=== PATIENT | female | born 1945 | race African-American/Black ===

== ENCOUNTER 2018-09-13 22:02 | Inpatient (IN) | payer OTHER ==
--- NOTE | 2018-09-13 23:14 | PDOC ---
History of Present Illness - General Chief Complaint: Pain Stated Complaint: ASTHMA, HTN, BILATERAL LEG SWELLING - History of Present Illness Initial Comments: The patient is a 72F w/ a history of HTN, HLD, and OA who presents for evaluation of RASHID, dark stools, N w/ V x2 Tuesday, and dizziness with standing. Patient reports bright red blood in emesis. She reports that she has had dark stools since Tuesday as well. Additionally, the patient was recently taking prednisone for asthma exacerbation. Takes Tramadol daily for chronic pain, took one dose of Ibuprofen for her RASHID today She denies fevers/chills, chest pain, SOB, blurry vision, or changes in sensation 09/14/18 00:17 Past History - Past Medical History Allergies/Adverse Reactions: Allergies Allergy/AdvReac Type Severity Reaction Status Date / Time No Known Allergies Allergy Verified 09/13/18 22:11 Home Medications: Ambulatory Orders Albuterol 0.083% Nebulizer Soheila [Ventolin 0.083%] 1 neb NEB Q4H PRN 09/14/18 Albuterol Sulfate Inhaler - [Ventolin Hfa Inhaler -] 1 - 2 inh PO Q4H PRN Amlodipine Besylate 10 mg PO DAILY 09/14/18 Aspirin 81 mg PO DAILY 09/14/18 Atorvastatin Ca [Lipitor] 20 mg PO HS 09/14/18 Lisinopril [Prinivil] 20 mg PO DAILY 09/14/18 Tramadol HCl 50 mg PO TID PRN 09/14/18 CVA: No COPD: No HTN: Yes Hypercholesterolemia: Yes (arthritis,gerd) - Suicide/Smoking/Psychosocial Hx Smoking History: Never smoked Have you smoked in the past 12 months: No Information on smoking cessation initiated: No Drug/Substance Use Hx: No Substance Use Type: None Review of Systems - Review of Systems Able to Perform ROS?: Yes Comments:: GENERAL/CONSTITUTIONAL: No fever or chills HEAD, EYES, EARS, NOSE AND THROAT: No change in vision. No ear pain or discharge. No sore throat CARDIOVASCULAR: No chest pain or shortness of breath RESPIRATORY: No cough, wheezing, or hemoptysis GASTROINTESTINAL: per HPI GENITOURINARY: No dysuria, frequency, or change in urination MUSCULOSKELETAL: No joint or muscle swelling or pain. No neck or back pain SKIN: No rash NEUROLOGIC: + headache; No vertigo, loss of consciousness, or change in strength /sensation ENDOCRINE: No increased thirst. No abnormal weight change HEMATOLOGIC/LYMPHATIC: No anemia, easy bleeding, or history of blood clots ALLERGIC/IMMUNOLOGIC: No hives or skin allergy 09/14/18 02:33 Is the patient limited Georgian proficient: No *Physical Exam - Vital Signs Last Vital Signs Temp Pulse Resp BP Pulse Ox 98.1 F 92 H 16 127/84 100 09/13/18 22:05 09/13/18 22:05 09/13/18 22:05 09/13/18 22:05 09/13/18 22:05 - Physical Exam Comments: GENERAL: Awake, alert, and fully oriented, in no acute distress HEAD: No signs of trauma, normocephalic, atraumatic EYES: PERRL, EOMI, sclera anicteric, conjunctiva clear ENT: Hearing grossly normal, nares patent, oropharynx clear without exudates. Dry mucosa LUNGS: No distress, speaks full sentences, clear to auscultation bilaterally HEART:Regular rate and rhythm, normal S1 and S2, no murmurs appreciated, peripheral pulses normal and equal bilaterally ABDOMEN: Soft, mild epigastric TTP w/o rebound or guarding, normoactive bowel sounds RECTAL: Normal rectal tone. Soft stool in rectal vault. No internal or external hemorrhoids. No fissures. Stool melanic. EXTREMITIES : Normal inspection, Normal range of motion, no edema. No clubbing or cyanosis NEUROLOGICAL: Cranial nerves II through XII grossly intact. Normal speech, normal gait, no focal sensorimotor deficits SKIN: Warm, Dry, normal turgor, no rashes or lesions noted 09/14/18 02:31 ED Treatment Course - LABORATORY CBC & Chemistry Diagram: 09/13/18 23:45 09/14/18 00:54 Medical Decision Making - Medical Decision Making The patient is a 72F w/ a history of HTN who presents for evaluation of dark stool, RASHID, and orthostatic dizziness 09/14/18 00:28 ED Course CMP, CBC, T/S, FOBT FOBT + Hgb 7.1 Will transfuse 1u pRBC Consult to GI 09/14/18 00:34 WBC 10.9 Hypokalmeia to 3.1, will replete Trop I neg Lactate 1.4 Dispo: Admit for symptomatic anemia and GI bleed 09/14/18 02:06 *DC/Admit/Observation/Transfer Diagnosis at time of Disposition: Symptomatic anemia GI bleed Qualifiers: GI bleed type/associated pathology: unspecified gastrointestinal hemorrhage type Qualified Code(s): K92.2 - Gastrointestinal hemorrhage, unspecified - Discharge Dispostion Condition at time of disposition: Fair Decision to Admit order: Yes - Referrals - Patient Instructions - Post Discharge Activity
--- NOTE | 2018-09-13 23:26 | PDOC ---
Attending Attestation - Resident Resident Name: Roscoe Sloan - ED Attending Attestation I have performed the following: I have examined & evaluated the patient, The case was reviewed & discussed with the resident, I agree w/resident's findings & plan, Exceptions are as noted - Medical Decision Making 09/13/18 23:26 I, Dr. Randa Severino, DO, attest that this document has been prepared under my direction and personally reviewed by me in its entirety. I further attest, that it accurately reflects all work, treatment, procedures and medical decision -making performed by me. 09/14/18 00:22 a/p: 72yo female with rashid, dizziness, and epigastric pain -pt states she was eating blueberries on tuesday - states she vomited bright red later that day and then developed a RASHID -pt states she has been having black stool and felt dizzy -pt states she took tramadol for the rashid, which did not improve the rashid, but also took ibuprofen a few times -pt recently on steroids for an Asthma exacerbation -no cp/sob -pt feels lightheaded -concern for GI bleed secondary to steroid and ibuprofen use - poss symptomatic anemia causing the rashid and lightheadedness -will send labs, ekg, cxr, head ct, stool for heme -black stool on rectal exam -will give reglan, protonix -will monitor and reassess 09/14/18 00:53 hgb 7 will need blood transfusion Pt with ugib - will need admission and GI eval <Randa Severino - Last Filed: 09/14/18 00:53> - HPI HPI: 09/13/18 23:42 The patient is a 72 year old female, with a significant past medical history of OA, HLD, HTN, and 81 mg aspirin daily, who presents to the emergency department with one week of black stools and one episode of bright red emesis 2 days ago. SHe also reports an intermittent, right posterior headache since Tuesday for which she took Advil with little to no relief. She states she taking tramadol daily for chronic pains. She reports her most recent travel was from [place] about a month ago. The patient denies chest pain, shortness of breath, and dizziness. The patient denies fever, chills, nausea, vomit, diarrhea and constipation. The patient denies dysuria, frequency, urgency and hematuria. Allergies: NKDA - Physicial Exam PE: 09/13/18 23:43 Constitutional: Awake, alert, oriented. No acute distress. Head: Normocephalic. Atraumatic Eyes: PERRL. EOMI. Conjunctivae are not pale. ENT: Mucous membranes are moist and intact. Posterior pharynx without exudates or erythema. Uvula midline. Neck: Supple. Full ROM. No lymphadenopathy. Cardiovascular: Regular rate. Regular rhythm. S1, S2 regular. Distal pulses are 2+ and symmetric. Pulmonary/Chest: No evidence of respiratory distress. Clear to auscultation bilaterally No wheezing, rales or rhonchi. Abdominal: (+) epigastric TTP. Soft and non-distended. No rebound, guarding or rigidity. No organomegaly. No palpable masses. Good bowel sounds. Rectal: (+)Small amount of black stool in vault. No internal or external hemorrhoids. no palpable masses. Back: No CVA tenderness. Musculoskeletal: No edema. No cyanosis. No clubbing. Full range of motion in all extremities. Nocalf tenderness. Radial/pedal pulses are intact and 2+ bilaterally Skin: Skin is warm and dry. No petechiae. No purpura. Neurological: Alert and oriented to person, place, and time. Cranial nerves II- XII are grossly intact. Normal speech. Strength is grossly symmetric. No sensory deficits. Psychiatric: Good eye contact. Normal interaction, affect and behavior. - Medical Decision Making 09/13/18 23:43 Documentation prepared by Niya Bond, acting as paramedical aide for Randa Severino DO, <Niya Bond - Last Filed: 09/14/18 01:15> Heart Score/ECG Review - ECG Intrepretation Comment:: 09/14/18 00:52 sinus at 85, nl axis, nl interval, no acute st/t wave findings <Randa Severino - Last Filed: 09/14/18 00:53>
[2018-09-13] MEDS ORDERED: METOCLOPRAMIDE HCL 10 MG TABLET (FP) PO ONE (23:34)
[2018-09-13] MEDS ORDERED: diphenhydrAMINE HCL 25 MG CAPSULE (FP) PO ONE (23:35)
[2018-09-13] MEDS ORDERED: SODIUM CHLORIDE 0.9% 1000 ML INFUS.BAG IV ONE (23:40)
[2018-09-14] MEDS ORDERED: PANTOPRAZOLE SODIUM 40 MG VIAL IVPUSH ONE (00:08)
[2018-09-14] MEDS ORDERED: diphenhydrAMINE HCL 12.5 MG/5 ML BULK BOTTLE ONE (00:19)
[2018-09-14] MEDS ORDERED: METOCLOPRAMIDE HCL INJECTION 10 MG/2 ML VIAL ONE (00:19)
[2018-09-14] MEDS ORDERED: PANTOPRAZOLE SODIUM 40 MG/100 ML BAG IVPB ONE (00:20)
[2018-09-14 00:31] LABS: BASO % 0.4 % (0-2.0); EOS % 1.1 % (0-4.5); HEMATOCRIT 22.1 % (32.4-45.2); HEMOGLOBIN 7.1 GM/dL (10.7-15.3); LYMPH % 30.2 % (8-40); MCH 30.3 pg (25.7-33.7); MCHC 32.2 g/dl (32.0-36.0); MEAN PLT VOLUME 8.4 fl (7.5-11.1); MONO % 5.7 % (3.8-10.2); NEUT % 62.6 % (42.8-82.8); PLATELET COUNT 230 K/MM3 (134-434); RBC 2.35 M/mm3 (3.60-5.2); RDW 14.8 % (11.6-15.6); WHITE BLOOD COUNT 10.9 K/mm3 (4.0-10.0)
[2018-09-14 00:44] LABS: INR 0.97 (0.83-1.09); PROTHROMBIN TIME (PATIENT) 11.5 SEC (9.7-13.0)
[2018-09-14 00:47] LABS: ACTIVATED PTT 31.9 SECONDS (25.2-36.5)
[2018-09-14 01:36] LABS: ALBUMIN 2.9 g/dl (3.4-5.0); ALK PHOS 47 U/L (45-117); ANION GAP 7 MMOL/L (8-16); BILIRUBIN,TOTAL 0.1 mg/dL (0.2-1); BLOOD UREA NITROGEN 20 mg/dL (7-18); CALCIUM 7.7 mg/dL (8.5-10.1); CHLORIDE 112 mmol/L (98-107); CO2 26 mmol/L (21-32); CREATININE 0.7 mg/dL (0.55-1.3); GLUCOSE,RANDOM 104 mg/dL (74-106); POTASSIUM 3.1 mmol/L (3.5-5.1); SGOT/AST 11 U/L (15-37); SGPT/ALT 15 U/L (13-61); SODIUM 145 mmol/L (136-145); TOT PROT 5.6 g/dl (6.4-8.2)
--- NOTE | 2018-09-14 02:50 | PN ---
Teaching Attending Note Name of Resident: Rosa Michel ATTENDING PHYSICIAN STATEMENT I saw and evaluated the patient. I reviewed the resident's note and discussed the case with the resident. I agree with the resident's findings and plan as documented. SUBJECTIVE: OBJECTIVE: ASSESSMENT AND PLAN:
[2018-09-14] MEDS ORDERED: KCL 10 MEQ IVPB 10 MEQ/100 ML INFUS.BAG IVPB ONE ×2 (03:09→06:14)
[2018-09-14] MEDS ORDERED: LORazepam 2 MG/ML SDV VIAL IVPUSH ONE (03:19)
[2018-09-14] MEDS ORDERED: ALBUTEROL SO4 0.083% IH SOL 2.5 MG/3 ML VIAL.NEB. NEB PRN (03:20)
[2018-09-14] MEDS ORDERED: POTASSIUM CHLORIDE TABS 20 MEQ TABLET.ER (FP) PO ONE ×2 (03:20→06:14)
[2018-09-14] MEDS: KCL 10 MEQ IVPB 10 MEQ/100 ML INFUS.BAG IVPB SCH ×2 (03:25→06:25)
[2018-09-14 03:36] LABS: MAGNESIUM 1.9 mg/dL (1.8-2.4)
--- NOTE | 2018-09-14 03:41 | HP ---
CHIEF COMPLAINT: dizziness, headache PCP: HISTORY OF PRESENT ILLNESS: Patient is a 72 y/o female with a history of HTN, HLD, OA, asthma, and GERD who presents with dizziness and headache. Patient had an episode of vomiting with dark blood on four days ago and two episodes of melena of three days ago. She was recently having a headache so she was taking toradol as well as ibuprofen. She also was taking prednisone last week for an asthma exacerbation. She reports she would feel abdominal pain, would defecate and the pain would resolve. She reports she has never had any episodes like this in the past and has never been told she has a low blood count. She had a colonoscopy in 2011 and was told the results are normal. She states she is also lightheaded and the feeling is worse when she stands up. She reports also having a strange needle like sensation in her legs. Her PCP gave her a medication to help, but she did not like the side effects and does not remember the name. The patients headache is in the back of her head and she reports it is better from earlier. Denies history of migraines. Patient denies change in vision, abdominal pain, chest pain, shortness of breath, or swelling in the legs. ER course was notable for: (1)Reglan (2) 500 ml bolus (3) 20 meq KCL Recent Travel: PAST MEDICAL HISTORY: HTN, HLD, OA, asthma, and GERD PAST SURGICAL HISTORY: Social History: Smoking: denies Alcohol: denies Drugs: Family History: Allergies No Known Allergies Allergy (Verified 09/13/18 22:11) HOME MEDICATIONS: REVIEW OF SYSTEMS CONSTITUTIONAL: Absent: fever, chills, diaphoresis, generalized weakness, malaise, loss of appetite, weight change HEENT: Absent: rhinorrhea, nasal congestion, throat pain, throat swelling, difficulty swallowing, mouth swelling, ear pain, eye pain, visual changes CARDIOVASCULAR: Absent: chest pain, syncope, palpitations, irregular heart rate, lightheadedness , peripheral edema RESPIRATORY: Absent: cough, shortness of breath, dyspnea with exertion, orthopnea, wheezing, stridor, hemoptysis GASTROINTESTINAL: Absent: abdominal pain, abdominal distension, nausea, vomiting, diarrhea, constipation, melena, hematochezia GENITOURINARY: Absent: dysuria, frequency, urgency, hesitancy, hematuria, flank pain, genital pain MUSCULOSKELETAL: Absent: myalgia, arthralgia, joint swelling, back pain, neck pain SKIN: Absent: rash, itching, pallor HEMATOLOGIC/IMMUNOLOGIC: Absent: easy bleeding, easy bruising, lymphadenopathy, frequent infections ENDOCRINE: Absent: unexplained weight gain, unexplained weight loss, heat intolerance, cold intolerance NEUROLOGIC: headache, dizziness Absent: focal weakness or paresthesias, unsteady gait, seizure, mental status changes, bladder or bowel incontinence PSYCHIATRIC: Absent: anxiety, depression, suicidal or homicidal ideation, hallucinations. PHYSICAL EXAMINATION Vital Signs - 24 hr 09/13/18 22:05 Temperature 98.1 F Pulse Rate 92 H Respiratory 16 Rate Blood Pressure 127/84 O2 Sat by Pulse 100 Oximetry (%) GENERAL: Awake, alert, and fully oriented, in no acute distress. HEAD: Normal with no signs of trauma. EYES: Pupils equal, round and reactive to light, extraocular movements intact, EARS, NOSE, THROAT: Moist mucous membranes. NECK: Normal range of motion, supple without lymphadenopathy, JVD, or masses. LUNGS: expiratory breath sounds at upper lungs, No accessory muscle use. HEART: Regular rate and rhythm, normal S1 and S2 without murmur, rub or gallop. ABDOMEN: Soft, nontender, not distended, normoactive bowel sounds, no guarding, no rebound, no masses. Rectal: no internal or external hemrrhoids palpated, no anal fissures noted MUSCULOSKELETAL: Normal range of motion at all joints. LOWER EXTREMITIES: 2+ pulses, warm, well-perfused. No calf tenderness. No peripheral edema. NEUROLOGICAL: Cranial nerves II-XII intact. Normal speech. PSYCHIATRIC: Cooperative. Good eye contact. Appropriate mood and affect. SKIN: Warm, dry, normal turgor, no rashes or lesions noted, normal capillary refill. CBC, BMP 09/13/18 23:45 09/14/18 00:54 ASSESSMENT/PLAN: Patient is a 72 y/o female with a history of HTN, HLD, OA, asthma, and GERD who presents with dizziness and headache. #Dizziness 2/2 to anemia 2/2 to upper GI bleed - Hgb 7.1 - 1 unit of blood, f/u CBC @ 9 - Pantoprazole 40 mg IV BID - f/u GI consut Dr. Carmichael - NPO - NS @ 100 - hold home antihypertensives - orthostatics: 101/52 90, 108/60 106, 90/56 119 #hypokalemia - 20 units IV given in ED - 40 unit po given and f/u repeat K - Mg level wnl #asthma - albuterol q4h prn - clinically asymptomatic #anxiety - one time dose of .5 mg ativan # HLD - atorvastatin 20 mg #DVT ppx - SCD's - no anticoagulation, hold patients aspirin Visit type - Emergency Visit Emergency Visit: Yes ED Registration Date: 09/14/18 Care time: The patient presented to the Emergency Department on the above date and was hospitalized for further evaluation of their emergent condition. - New Patient This patient is new to me today: Yes Date on this admission: 09/14/18 - Critical Care Critical Care patient: No
--- NOTE | 2018-09-14 03:53 | PN ---
Teaching Attending Note Name of Resident: Rosa Michel ATTENDING PHYSICIAN STATEMENT I saw and evaluated the patient. I reviewed the resident's note and discussed the case with the resident. I agree with the resident's findings and plan as documented. SUBJECTIVE: Patient seen and examined; she is a 72 y/o AAF who presents to the ER with various complaints who was found to have a symptomatic anemia likely 2/2 GIB. She has been taking increased amount NSAIDs and was just on prednisone for an asthma exacerbation. She is hemodynamically stable and afebrile. Her complaints today were dizziness when going from sitting to standing, melena between tuesday to tuesday, and weakness. Further HPI per resident documentation. She denies any hemetemesis, hematochezia, or any LOC with these episodes. Hb found to be 7 range. Has had waxing and waning abdominal pain for months OBJECTIVE: VSS, labs reviewed NAD, resting comfortably in bed CN2-12 grossly intact with no FND NT ND +BS all 4 quads Orthostatic vs pending RRR s1/2 no otilio mgr Normal behavior, anxious affect ASSESSMENT AND PLAN: 1) Likely Upper GIB -Hb 7 with h/o melena; likely caused by the patient's medication usage -NPO, IVF, ER gave 1 unit PRBC. Trend H and H q6H, monitor on telemetry with low threshold for ICU transfer. -IV BID Protonix, GI consult. No concern for variceal bleed so can hold off on any octreotide for now. 2) Symptomatic Normocytic Anemia -May be all able to be explained by #1, but will check anemia studies as well. 3) Dizziness -Likely related to orthostasis 2/2 1; will hydrate and treat and check for resolution -Monitor for arrhythmias on tele -Look for other causes if not resolved with treatment of #1. 4) HTN -Hold antihypertensives
[2018-09-14] MEDS ORDERED: ATORVASTATIN CA 20 MG TABLET (FP) PO SCH (04:00)
[2018-09-14] MEDS: SODIUM CHLORIDE 1,000 ML IV SCH (07:39)
[2018-09-14 09:05] LABS: HEMATOCRIT 20.8 % (32.4-45.2); RBC 2.29 M/mm3 (3.60-5.2); WHITE BLOOD COUNT 9.9 K/mm3 (4.0-10.0)
[2018-09-14 09:06] LABS: PLATELET COUNT 172 K/MM3 (134-434); RDW 14.8 % (11.6-15.6)
[2018-09-14 09:09] LABS: HEMOGLOBIN 6.9 GM/dL (10.7-15.3)
[2018-09-14] MEDS ORDERED: PANTOPRAZOLE SODIUM 40 MG VIAL IVPUSH SCH (10:00)
[2018-09-14 10:14] LABS: BASO % 0.3 % (0-2.0); EOS % 0.6 % (0-4.5); HEMATOCRIT 21.5 % (32.4-45.2); HEMOGLOBIN 7.1 GM/dL (10.7-15.3); LYMPH % 17.2 % (8-40); MCH 29.9 pg (25.7-33.7); MCHC 33.1 g/dl (32.0-36.0); MEAN CELL VOLUME 90.4 fl (80-96); MEAN PLT VOLUME 7.8 fl (7.5-11.1); MONO % 4.9 % (3.8-10.2); PLATELET COUNT 182 K/MM3 (134-434); RBC 2.38 M/mm3 (3.60-5.2); RDW 15.3 % (11.6-15.6); WHITE BLOOD COUNT 9.9 K/mm3 (4.0-10.0)
[2018-09-14] MEDS ORDERED: PANTOPRAZOLE SODIUM 40 MG VIAL ONE (11:06)
--- NOTE | 2018-09-14 12:15 | EKG ---
Test Reason : Blood Pressure : / mmHG Vent. Rate : 085 BPM Atrial Rate : 085 BPM P-R Int : 166 ms QRS Dur : 082 ms QT Int : 372 ms P-R-T Axes : 053 001 019 degrees QTc Int : 442 ms NORMAL SINUS RHYTHM NORMAL ECG NO PREVIOUS ECGS AVAILABLE Confirmed by ALFREDO SOUSA MD ([id number]) on 09/14/2018 12:14:56 PM Referred By: Confirmed By:ALFREDO SOUSA MD
--- NOTE | 2018-09-14 15:57 | CON.GI ---
Consult Consult Specialty:: GI: Dr. Duffy for Dr. Carmichael Referred by:: Hospitalist Service Reason for Consultation:: Melena and anemia - History of Present Illness Chief Complaint: Leg swelling and headache History of Present Illness: 72F admitted who describes coming to the ER for evaluation of headache and leg swelling / pain. SHe was noted to be anemic. She explains that she was nauseaous and vomited dark red blood last . This was followed by melenic bowel movements tuesday. She has not had a bowel movement since tuesday. She has been taking tramadol and ibuprofen for her headache complaints and she took 1 ibuprofen yesterday secondary to leg pain. She was currently receiving her 2nd unit of PRBC. She described previous upper abdominal discomfort that has since resolved. She has never had an upper endoscopy. She has had 2 colonoscopies, the last being in 2011. She believes they were both normal. She has a sister who from colon cancer complications at age 47. 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 [employer] Place of : Other ([place]) History of Recent Travel: No Home Medications - Allergies Allergies/Adverse Reactions: Allergies Allergy/AdvReac Type Severity Reaction Status Date / Time No Known Allergies Allergy Verified 09/13/18 22:11 - Home Medications Home Medications: Ambulatory Orders Albuterol 0.083% Nebulizer Soheila [Ventolin 0.083%] 1 neb NEB Q4H PRN 09/14/18 Albuterol Sulfate Inhaler - [Ventolin Hfa Inhaler -] 1 - 2 inh PO Q4H PRN Amlodipine Besylate 10 mg PO DAILY 09/14/18 Aspirin 81 mg PO DAILY 09/14/18 Atorvastatin Ca [Lipitor] 20 mg PO HS 09/14/18 Lisinopril [Prinivil] 20 mg PO DAILY 09/14/18 Tramadol HCl 50 mg PO TID PRN 09/14/18 Family Disease History - Family Disease History Family Disease History: Other: Father (: 76: Dementia complications), Mother (Alive: BCA), Brother (5, healthy), Sister (2, 1 : colon cancer age 47), Son (2, 1 with CHF) Review of Systems - Review of Systems Constitutional: denies: Fever Cardiovascular: denies: Chest Pain Respiratory: denies: Cough, SOB Gastrointestinal: reports: Abdominal Pain (Resolved), Constipation, Melena ( Last BM:), Vomiting Blood Neurological: reports: Headache Physical Exam-GI Vital Signs: Vital Signs Temperature 09/14/18 15:30 Pulse Rate 89 09/14/18 15:30 Respiratory Rate 16 09/14/18 15:30 Blood Pressure 126/68 09/14/18 15:30 O2 Sat by Pulse Oximetry (%) 99 on RA 09/14/18 15:30 Constitutional: Yes: Calm Eyes: No: Sclera Icterus Cardiovascular: Yes: Regular Rate and Rhythm Respiratory: Yes: CTA Bilaterally Gastrointestinal Inspection: No: Distention, Scars ...Auscultate: Yes: Normoactive Bowel Sounds ...Palpate: No: Hepatomegaly, Splenomegaly, Tenderness ...Percussion: No: Tympanitic ...Rectal Exam: Yes: Other (Educational Assistant Teacher present: no external lesions, no masses, scant brown stool in rectal vault. no gross blood/melena) Edema: No (No LE edema) Neurological: Yes: Alert, Oriented Labs: CBC, BMP 09/14/18 09:58 09/14/18 00:54 INR, PTT INR 0.97 (0.83-1.09) 09/14/18 00:10 Problem List - Problems (1) GI bleed Assessment/Plan: Upper GI bleed by description, in setting of recet increase in NSAID use, without melena for several days Clinically stable Advise: NPO except meds with small sips water Changed protonix to infusion @ 8mg/hr Monitor for signs of active GI bleeding. If overt bleeding, change in hemodynamics, transfer to ICU setting Discussed EGD with Maryann for further intraluminal evaluation. Discussed potential risks of the procedure like but not limited to bleeding, perforation, infection, sedation medication effects, all of which could be potentially life threatening. She has agreed to the procedure. I also explained that if significant active bleeding was encountered, intubation to protect her airway could be required. Code(s): K92.2 - GASTROINTESTINAL HEMORRHAGE, UNSPECIFIED Qualifiers: GI bleed type/associated pathology: unspecified gastrointestinal hemorrhage type (2) Family history of malignant neoplasm of colon in first degree relative diagnosed when younger than 60 years of age Assessment/Plan: Ms. Wolf is due for colon cancer screening given her family history. She is aware and will be discussing scheduling GI follow-up in [place], where she resides, with her PMD. Code(s): Z80.0 - FAMILY HISTORY OF MALIGNANT NEOPLASM OF DIGESTIVE ORGANS
[2018-09-14] MEDS: PANTOPRAZOLE SODIUM 80 MG in SODIUM CHLORIDE 100 ML IVPB SCH (18:23)
--- NOTE | 2018-09-14 19:03 | PN ---
Teaching Attending Note Name of Resident: Ana Lopez ATTENDING PHYSICIAN STATEMENT I saw and evaluated the patient. I reviewed the resident's note and discussed the case with the resident. I agree with the resident's findings and plan as documented. SUBJECTIVE: Patient is comfortable with no acute distress. no shortness breath. OBJECTIVE: Vital Signs Temperature 98.5 F 09/14/18 06:56 Pulse Rate 68 09/14/18 06:56 Respiratory Rate 19 09/14/18 06:56 Blood Pressure 110/78 09/14/18 06:56 O2 Sat by Pulse Oximetry (%) 99 09/14/18 06:56 GENERAL: Awake, alert, and fully oriented, in no acute distress. HEAD: Normal with no signs of trauma. EYES: Pupils equal, round and reactive to light, extraocular movements intact, EARS, NOSE, THROAT: Moist mucous membranes. NECK: Normal range of motion, supple without lymphadenopathy, JVD, or masses. LUNGS: expiratory breath sounds at upper lungs, No accessory muscle use. HEART: Regular rate and rhythm, normal S1 and S2 without murmur, rub or gallop. ABDOMEN: Soft, nontender, not distended, normoactive bowel sounds, no guarding, no rebound, no masses. EXTREMITIES: 2+ pulses, warm, well-perfused. No calf tenderness. No peripheral edema. NEUROLOGICAL: Cranial nerves II-XII intact. Normal speech. PSYCHIATRIC: Cooperative. Good eye contact. Appropriate mood and affect. SKIN: Warm, dry, normal turgor, no rashes or lesions noted, normal capillary refill. CBCD WBC 9.9 K/mm3 (4.0-10.0) 09/14/18 09:58 RBC 2.38 M/mm3 (3.60-5.2) L 09/14/18 09:58 Hgb 7.1 GM/dL (10.7-15.3) L 09/14/18 09:58 Hct 21.5 % (32.4-45.2) L 09/14/18 09:58 MCV 90.4 fl (80-96) 09/14/18 09:58 MCHC 33.1 g/dl (32.0-36.0) 09/14/18 09:58 RDW 15.3 % (11.6-15.6) 09/14/18 09:58 Plt Count 182 K/MM3 (134-434) 09/14/18 09:58 MPV 7.8 fl (7.5-11.1) 09/14/18 09:58 CMP Sodium 145 mmol/L (136-145) 09/14/18 00:54 Potassium 3.1 mmol/L (3.5-5.1) L 09/14/18 00:54 Chloride 112 mmol/L (98-107) H 09/14/18 00:54 Carbon Dioxide 26 mmol/L (21-32) 09/14/18 00:54 Anion Gap 7 MMOL/L (8-16) L 09/14/18 00:54 BUN 20 mg/dL (7-18) H 09/14/18 00:54 Creatinine 0.7 mg/dL (0.55-1.3) 09/14/18 00:54 Creat Clearance w eGFR > 60 (>60) 09/14/18 00:54 Random Glucose 104 mg/dL (74-106) 09/14/18 00:54 Calcium 7.7 mg/dL (8.5-10.1) L 09/14/18 00:54 Total Bilirubin 0.1 mg/dL (0.2-1) L 09/14/18 00:54 AST 11 U/L (15-37) L 09/14/18 00:54 ALT 15 U/L (13-61) 09/14/18 00:54 Alkaline Phosphatase 47 U/L (45-117) 09/14/18 00:54 Total Protein 5.6 g/dl (6.4-8.2) L 09/14/18 00:54 Albumin 2.9 g/dl (3.4-5.0) L 09/14/18 00:54 CARDIAC ENZYMES Creatine Kinase 61 IU/L (26-192) 09/14/18 00:54 Troponin I < 0.02 ng/ml (0.00-0.05) 09/14/18 00:54 Current Medications Generic Name Dose Route Start Last Admin Trade Name Freq PRN Reason Stop Dose Admin Albuterol Sulfate 1 amp 09/14/18 03:20 Ventolin 0.083% Nebulizer Soln - NEB Q4H PRN SHORT OF BREATH/WHEEZING Sodium Chloride 1,000 mls @ 100 mls/hr 09/14/18 03:15 09/14/18 07:39 Normal Saline - IV 100 mls/hr ASDIR [facility] Administration Pantoprazole Sodium 80 mg/ 100 mls @ 10 mls/hr 09/14/18 16:00 09/14/18 18:23 Sodium Chloride IVPB 10 mls/hr Q10H [facility] Administration 8 MG/HR Home Medications Medication Instructions Recorded Albuterol 0.083% Nebulizer Soheila 1 neb NEB Q4H PRN 09/14/18 [Ventolin 0.083%] Albuterol Sulfate Inhaler - 1 - 2 inh PO Q4H PRN 09/14/18 [Ventolin Hfa Inhaler -] Amlodipine Besylate 10 mg PO DAILY 09/14/18 Aspirin 81 mg PO DAILY 09/14/18 Atorvastatin Ca [Lipitor] 20 mg PO HS 09/14/18 Lisinopril [Prinivil] 20 mg PO DAILY 09/14/18 Tramadol HCl 50 mg PO TID PRN 09/14/18 ASSESSMENT AND PLAN: Patient is a 72 y/o female with a history of HTN, HLD, OA, asthma, and GERD who presents with dizziness and headache, and was found to have in ED. an episode of episode of vomiting with dark blood on four days ago and two episodes of melena of three days ago. # Acute UGIB , s/p one unit of PRBC , on IV BID Protonix, GI consult appreciated. # Symptomatic Normocytic Anemia s/p one unit of RBC # Dizziness due to anemia # HTN stable , will Hold antihypertensives. DVT Px: SCDs
--- NOTE | 2018-09-14 20:37 | PN ---
Physical Exam: SUBJECTIVE: Patient seen and examined this morning in the ED. Patient says she has felt nausea, dizziness since her episodes of Hematemesis and Melena. Continues to feel nausea and posterior head ache during my interview. Has been using tramadol for the past 2 months. Additionally mentions her younger sister from Colon cancer. Patient has had 2 colonoscopy's in the past, the last one was 2011 and both were normal as per patient. OBJECTIVE: Vital Signs Period Temp Pulse Resp BP Sys/Cuevas Pulse Ox Last 24 Hr 98.1 F-98.5 F 68-92 16-19 96-127/63-84 99-100 GENERAL: A&Ox3, NAD HEAD: NCAT EYES: PERRL, EOMI ENT: Oropharynx clear without exudates, moist mucous membranes. NECK: No JVD LUNGS: Breath sounds equal, clear to auscultation bilaterally, no wheezes HEART: Regular rate and rhythm, S1, S2 without murmur ABDOMEN: Soft, nontender, nondistended, + bowel sounds, no guarding EXTREMITIES: 2+ pulses, no edema. NEUROLOGICAL: Cranial nerves II through XII grossly intact. Normal speech. SKIN: Warm, dry, no rashes or lesions noted Laboratory Results - last 24 hr 09/13/18 09/13/18 09/13/18 23:45 23:45 23:45 WBC 10.9 H RBC 2.35 L Hgb 7.1 L Hct 22.1 L MCV 94.0 MCH 30.3 MCHC 32.2 RDW 14.8 Plt Count 230 MPV 8.4 Absolute Neuts (auto) 6.9 Neutrophils % 62.6 Lymphocytes % 30.2 Monocytes % 5.7 Eosinophils % 1.1 Basophils % 0.4 Nucleated RBC % 0 PT with INR INR PTT (Actin FS) Sodium Cancelled Potassium Cancelled Chloride Cancelled Carbon Dioxide Cancelled Anion Gap Cancelled BUN Cancelled Creatinine Cancelled Creat Clearance w eGFR Cancelled Random Glucose Cancelled Lactic Acid Calcium Cancelled Magnesium Ferritin Total Bilirubin Cancelled AST Cancelled ALT Cancelled Alkaline Phosphatase Cancelled Creatine Kinase Cancelled Troponin I Cancelled Total Protein Cancelled Albumin Cancelled Vitamin B12 Serum Folate TSH Cancelled Stool Occult Blood Blood Type O POSITIVE Antibody Screen Negative Crossmatch See Detail 09/14/18 09/14/18 09/14/18 00:10 00:10 00:10 WBC RBC Hgb Hct MCV MCH MCHC RDW Plt Count MPV Absolute Neuts (auto) Neutrophils % Lymphocytes % Monocytes % Eosinophils % Basophils % Nucleated RBC % PT with INR 11.50 INR 0.97 PTT (Actin FS) 31.9 Sodium Potassium Chloride Carbon Dioxide Anion Gap BUN Creatinine Creat Clearance w eGFR Random Glucose Lactic Acid 1.4 Calcium Magnesium Ferritin Total Bilirubin AST ALT Alkaline Phosphatase Creatine Kinase Troponin I Total Protein Albumin Vitamin B12 Serum Folate TSH Stool Occult Blood Positive Blood Type Antibody Screen Crossmatch 09/14/18 09/14/18 09/14/18 00:50 00:50 00:54 WBC RBC Hgb Hct MCV MCH MCHC RDW Plt Count MPV Absolute Neuts (auto) Neutrophils % Lymphocytes % Monocytes % Eosinophils % Basophils % Nucleated RBC % PT with INR INR PTT (Actin FS) Sodium 145 Potassium 3.1 L Chloride 112 H Carbon Dioxide 26 Anion Gap 7 L BUN 20 H Creatinine 0.7 Creat Clearance w eGFR > 60 Random Glucose 104 Lactic Acid Calcium 7.7 L Magnesium 1.9 2.0 Ferritin 35.3 Total Bilirubin 0.1 L AST 11 L ALT 15 Alkaline Phosphatase 47 Creatine Kinase 61 Troponin I < 0.02 Total Protein 5.6 L Albumin 2.9 L Vitamin B12 532 Serum Folate 15 TSH 1.61 Stool Occult Blood Blood Type O POSITIVE Antibody Screen Crossmatch 09/14/18 09/14/18 08:10 09:58 WBC 9.9 9.9 RBC 2.29 L 2.38 L Hgb 6.9 L* 7.1 L Hct 20.8 L 21.5 L MCV 91.0 90.4 MCH 30.0 29.9 MCHC 33.0 33.1 RDW 14.8 15.3 Plt Count 172 D 182 MPV 8.0 7.8 Absolute Neuts (auto) 7.6 Neutrophils % 77.0 D Lymphocytes % 17.2 D Monocytes % 4.9 Eosinophils % 0.6 Basophils % 0.3 Nucleated RBC % 0 PT with INR INR PTT (Actin FS) Sodium Potassium Chloride Carbon Dioxide Anion Gap BUN Creatinine Creat Clearance w eGFR Random Glucose Lactic Acid Calcium Magnesium Ferritin Total Bilirubin AST ALT Alkaline Phosphatase Creatine Kinase Troponin I Total Protein Albumin Vitamin B12 Serum Folate TSH Stool Occult Blood Blood Type Antibody Screen Crossmatch Active Medications Albuterol Sulfate (Ventolin 0.083% Nebulizer Soln -) 1 amp NEB Q4H PRN PRN Reason: SHORT OF BREATH/WHEEZING Sodium Chloride (Normal Saline -) 1,000 mls @ 100 mls/hr IV ASDIR [facility] Last Admin: 09/14/18 07:39 Dose: 100 mls/hr Pantoprazole Sodium 80 mg/ (Sodium Chloride) 100 mls @ 10 mls/hr IVPB Q10H [facility] Last Admin: 09/14/18 18:23 Dose: 10 mls/hr IMAGING: -CXR: Shallow inspiration. No evidence of active pulmonary disease. -EKG: NORMAL SINUS RHYTHM, NORMAL ECG, VR 85, QTc 442 ASSESSMENT/PLAN: 72 y/o female with PMHx of HTN, HLD, OA, asthma, and GERD presented with dizziness and headache. #Dizziness -Likely due to Anemia 2/2 to upper GI bleed from excessive NSAID use; Still consider Orthostasis -Positive orthostatics: 101/52 90, 108/60 106, 90/56 119 -Hgb 7.1 on admission -S/P 2 Units pRBC's (09/14) -GI (Dr. Banuelos) Consulted, Appreciate Rec's, If overt bleeding, change in hemodynamics, transfer to ICU setting. EGD pending. -Home dose tramadol held -NPO -Started Protonix infusion @ 8mg/hr -Monitor for signs of active GIB, Hemodynamic decline -IV NS @ 100 mls/hr -Home antihypertensives held -Monitor on Tele, Continue to monitor H&H -Iron studies pending #Hypokalemia -20 mEq IV in ED, 40 mEq po on admission -Mg level wnl -Continue to monitor #Asthma -Continue Ventolin -Continue to monitor # HLD -Continue home dose atorvastatin #PPx -DVT: SCD's Visit type - Emergency Visit Emergency Visit: Yes ED Registration Date: 09/14/18 Care time: The patient presented to the Emergency Department on the above date and was hospitalized for further evaluation of their emergent condition. - New Patient This patient is new to me today: Yes Date on this admission: 09/14/18 - Critical Care Critical Care patient: No - Discharge Referral Referred to [facility] No
[2018-09-14 20:42] LABS: HEMATOCRIT 27.8 % (32.4-45.2); HEMOGLOBIN 9.3 GM/dL (10.7-15.3); MCH 30.4 pg (25.7-33.7); MCHC 33.4 g/dl (32.0-36.0); MEAN CELL VOLUME 90.9 fl (80-96); MEAN PLT VOLUME 8.1 fl (7.5-11.1); PLATELET COUNT 209 K/MM3 (134-434); RBC 3.06 M/mm3 (3.60-5.2); RDW 15.3 % (11.6-15.6); WHITE BLOOD COUNT 10.3 K/mm3 (4.0-10.0)
[2018-09-14] MEDS ORDERED: ATORVASTATIN CA 10 MG TABLET (FP) ONE (23:40)
[2018-09-14] MEDS: ATORVASTATIN CA 20 MG TABLET (FP) PO SCH (23:44)
[2018-09-15] MEDS ORDERED: PANTOPRAZOLE SODIUM 40 MG/100 ML BAG IVPB ONE (02:50)
[2018-09-15] MEDS: PANTOPRAZOLE SODIUM 80 MG in SODIUM CHLORIDE 100 ML IVPB SCH ×4 (04:14→21:25)
[2018-09-15] MEDS: SODIUM CHLORIDE 1,000 ML IV SCH ×3 (04:15→21:26)
[2018-09-15 06:48] LABS: BASO % 0.4 % (0-2.0); HEMATOCRIT 27.3 % (32.4-45.2); HEMOGLOBIN 9.1 GM/dL (10.7-15.3); LYMPH % 21.8 % (8-40); MCH 30.4 pg (25.7-33.7); MCHC 33.4 g/dl (32.0-36.0); MEAN PLT VOLUME 7.6 fl (7.5-11.1); MONO % 5.4 % (3.8-10.2); NEUT % 70.4 % (42.8-82.8); PLATELET COUNT 186 K/MM3 (134-434); WHITE BLOOD COUNT 8.4 K/mm3 (4.0-10.0)
[2018-09-15 07:43] LABS: ANION GAP 10 MMOL/L (8-16); BLOOD UREA NITROGEN 7 mg/dL (7-18); CALCIUM 8.2 mg/dL (8.5-10.1); CHLORIDE 110 mmol/L (98-107); CO2 25 mmol/L (21-32); CREATININE 0.6 mg/dL (0.55-1.3); GLUCOSE,RANDOM 89 mg/dL (74-106); MAGNESIUM 2.2 mg/dL (1.8-2.4); PHOSPHOROUS 3.5 mg/dL (2.5-4.9); POTASSIUM 3.4 mmol/L (3.5-5.1); SODIUM 144 mmol/L (136-145)
[2018-09-15 08:06] LABS: SERUM IRON SATURATION 28 % (15-55); TOTAL IRON BINDING CAPACITY 225 ug/dL (250-450); UIBC 163 ug/dL (118-369)
--- NOTE | 2018-09-15 13:44 | PN ---
Teaching Attending Note Name of Resident: Ana Lopez ATTENDING PHYSICIAN STATEMENT I saw and evaluated the patient. I reviewed the resident's note and discussed the case with the resident. I agree with the resident's findings and plan as documented. SUBJECTIVE: Patient is comfortable, no further bleed. OBJECTIVE: Vital Signs Temperature 98.4 F 09/15/18 13:19 Pulse Rate 83 09/15/18 13:19 Respiratory Rate 16 09/15/18 13:19 Blood Pressure 107/77 09/15/18 13:19 O2 Sat by Pulse Oximetry (%) 99 09/15/18 13:19 GENERAL: Awake, alert, and fully oriented, in no acute distress. HEAD: Normal with no signs of trauma. EYES: Pupils equal, round and reactive to light, extraocular movements intact, EARS, NOSE, THROAT: Moist mucous membranes. NECK: Normal range of motion, supple without lymphadenopathy, JVD, or masses. LUNGS: expiratory breath sounds at upper lungs, No accessory muscle use. HEART: Regular rate and rhythm, normal S1 and S2 without murmur, rub or gallop. ABDOMEN: Soft, nontender, not distended, normoactive bowel sounds, no guarding, no rebound, no masses. EXTREMITIES: 2+ pulses, warm, well-perfused. No calf tenderness. No peripheral edema. NEUROLOGICAL: Cranial nerves II-XII intact. Normal speech. PSYCHIATRIC: Cooperative. Good eye contact. Appropriate mood and affect. SKIN: Warm, dry, normal turgor, no rashes or lesions noted, normal capillary refill. CBCD WBC 8.4 K/mm3 (4.0-10.0) 09/15/18 06:00 RBC 3.00 M/mm3 (3.60-5.2) L 09/15/18 06:00 Hgb 9.1 GM/dL (10.7-15.3) L 09/15/18 06:00 Hct 27.3 % (32.4-45.2) L 09/15/18 06:00 MCV 91.0 fl (80-96) 09/15/18 06:00 MCHC 33.4 g/dl (32.0-36.0) 09/15/18 06:00 RDW 15.0 % (11.6-15.6) 09/15/18 06:00 Plt Count 186 K/MM3 (134-434) 09/15/18 06:00 MPV 7.6 fl (7.5-11.1) 09/15/18 06:00 CMP Sodium 144 mmol/L (136-145) 09/15/18 06:00 Potassium 3.4 mmol/L (3.5-5.1) L 09/15/18 06:00 Chloride 110 mmol/L (98-107) H 09/15/18 06:00 Carbon Dioxide 25 mmol/L (21-32) 09/15/18 06:00 Anion Gap 10 MMOL/L (8-16) 09/15/18 06:00 BUN 7 mg/dL (7-18) 09/15/18 06:00 Creatinine 0.6 mg/dL (0.55-1.3) 09/15/18 06:00 Creat Clearance w eGFR > 60 (>60) 09/15/18 06:00 Random Glucose 89 mg/dL (74-106) 09/15/18 06:00 Calcium 8.2 mg/dL (8.5-10.1) L 09/15/18 06:00 Total Bilirubin 0.1 mg/dL (0.2-1) L 09/14/18 00:54 AST 11 U/L (15-37) L 09/14/18 00:54 ALT 15 U/L (13-61) 09/14/18 00:54 Alkaline Phosphatase 47 U/L (45-117) 09/14/18 00:54 Total Protein 5.6 g/dl (6.4-8.2) L 09/14/18 00:54 Albumin 2.9 g/dl (3.4-5.0) L 09/14/18 00:54 CARDIAC ENZYMES Creatine Kinase 61 IU/L (26-192) 09/14/18 00:54 Troponin I < 0.02 ng/ml (0.00-0.05) 09/14/18 00:54 Current Medications Generic Name Dose Route Start Last Admin Trade Name Freq PRN Reason Stop Dose Admin Albuterol Sulfate 1 amp 09/14/18 03:20 Ventolin 0.083% Nebulizer Soln - NEB Q4H PRN SHORT OF BREATH/WHEEZING Atorvastatin Calcium 20 mg 09/14/18 22:00 09/14/18 23:44 Lipitor - PO 20 mg HS [facility] Administration Sodium Chloride 1,000 mls @ 100 mls/hr 09/14/18 03:15 09/15/18 04:15 Normal Saline - IV 100 mls/hr ASDIR [facility] Administration Pantoprazole Sodium 80 mg/ 100 mls @ 10 mls/hr 09/14/18 16:00 09/15/18 04:14 Sodium Chloride IVPB 10 mls/hr Q10H [facility] Administration 8 MG/HR Home Medications Medication Instructions Recorded Albuterol 0.083% Nebulizer Soheila 1 neb NEB Q4H PRN 09/14/18 [Ventolin 0.083%] Albuterol Sulfate Inhaler - 1 - 2 inh PO Q4H PRN 09/14/18 [Ventolin Hfa Inhaler -] Amlodipine Besylate 10 mg PO DAILY 09/14/18 Atorvastatin Ca [Lipitor] 20 mg PO HS 09/14/18 Lisinopril [Prinivil] 20 mg PO DAILY 09/14/18 Tramadol HCl 50 mg PO TID PRN 09/14/18 ASSESSMENT AND PLAN: Patient is a 72 y/o female with a history of HTN, HLD, OA, asthma, and GERD who presents with dizziness and headache, and was found to have in ED. an episode of episode of vomiting with dark blood on four days ago and two episodes of melena of three days ago. # Acute UGIB , s/p one unit of PRBC , on IV BID Protonix, GI consult appreciated. # Symptomatic Normocytic Anemia s/p one unit of RBC # Dizziness due to anemia # HTN stable , will Hold antihypertensives. DVT Px: SCDs
[2018-09-15 14:35] VITALS: BMI 27.4
--- NOTE | 2018-09-15 15:32 | PN ---
Progress Note (short form) - Note Progress Note: EGD complete. Report placed in procedural section and to be scanned into [facility]. If no signs of overt bleeding, advance to fulls in AM and PO PPI . Other recommendations per EGD report Problem List - Problems (1) GI bleed Code(s): K92.2 - GASTROINTESTINAL HEMORRHAGE, UNSPECIFIED Qualifiers: GI bleed type/associated pathology: unspecified gastrointestinal hemorrhage type Qualified Code(s): K92.2 - Gastrointestinal hemorrhage, unspecified (2) Family history of malignant neoplasm of colon in first degree relative diagnosed when younger than 60 years of age Code(s): Z80.0 - FAMILY HISTORY OF MALIGNANT NEOPLASM OF DIGESTIVE ORGANS
--- NOTE | 2018-09-15 16:07 | PN ---
Physical Exam: SUBJECTIVE: Patient seen and examined this morning at bedside. No new complaints. Denies fevers, chills chest pain, SOB, nausea, vomiting, diarrhea, constipation. OBJECTIVE: Vital Signs Period Temp Pulse Resp BP Sys/Cuevas Pulse Ox Last 24 Hr 97.8 F-98.8 F 79-106 16-22 105-122/71-81 98-100 GENERAL: A&Ox3, NAD HEAD: NCAT EYES: PERRL, EOMI ENT: Oropharynx clear without exudates, moist mucous membranes. NECK: No JVD LUNGS: Breath sounds equal, clear to auscultation bilaterally, no wheezes HEART: Regular rate and rhythm, S1, S2 without murmur ABDOMEN: Soft, nontender, nondistended, + bowel sounds, no guarding EXTREMITIES: 2+ pulses, no edema. NEUROLOGICAL: Cranial nerves II through XII grossly intact. Normal speech. SKIN: Warm, dry, no rashes or lesions noted Laboratory Results - last 24 hr 09/14/18 09/14/18 09/15/18 08:10 19:30 06:00 WBC 10.3 H RBC 3.06 L Hgb 9.3 L Hct 27.8 L D MCV 90.9 MCH 30.4 MCHC 33.4 RDW 15.3 Plt Count 209 MPV 8.1 Absolute Neuts (auto) Neutrophils % Lymphocytes % Monocytes % Eosinophils % Basophils % Nucleated RBC % Sodium Potassium Chloride Carbon Dioxide Anion Gap BUN Creatinine Creat Clearance w eGFR Random Glucose Calcium Phosphorus Magnesium Iron 62 Cancelled TIBC 225 L Iron Saturation 28 09/15/18 09/15/18 06:00 06:00 WBC 8.4 RBC 3.00 L Hgb 9.1 L Hct 27.3 L MCV 91.0 MCH 30.4 MCHC 33.4 RDW 15.0 Plt Count 186 MPV 7.6 Absolute Neuts (auto) 5.9 Neutrophils % 70.4 Lymphocytes % 21.8 D Monocytes % 5.4 Eosinophils % 2.0 D Basophils % 0.4 Nucleated RBC % 0 Sodium 144 Potassium 3.4 L Chloride 110 H Carbon Dioxide 25 Anion Gap 10 BUN 7 Creatinine 0.6 Creat Clearance w eGFR > 60 Random Glucose 89 Calcium 8.2 L Phosphorus 3.5 Magnesium 2.2 Iron TIBC Iron Saturation Active Medications Albuterol Sulfate (Ventolin 0.083% Nebulizer Soln -) 1 amp NEB Q4H PRN PRN Reason: SHORT OF BREATH/WHEEZING Atorvastatin Calcium (Lipitor -) 20 mg PO HS [facility] Last Admin: 09/14/18 23:44 Dose: 20 mg Sodium Chloride (Normal Saline -) 1,000 mls @ 100 mls/hr IV ASDIR [facility] Last Admin: 09/15/18 04:15 Dose: 100 mls/hr Pantoprazole Sodium 80 mg/ (Sodium Chloride) 100 mls @ 10 mls/hr IVPB Q10H [facility] Last Admin: 09/15/18 13:51 Dose: 10 mls/hr IMAGING: -CXR: Shallow inspiration. No evidence of active pulmonary disease. -EKG: NORMAL SINUS RHYTHM, NORMAL ECG, VR 85, QTc 442 ASSESSMENT/PLAN: 72 y/o female with PMHx of HTN, HLD, OA, asthma, and GERD presented with dizziness and headache. #Dizziness -Likely due to Anemia 2/2 to upper GI bleed from excessive NSAID use; Still consider Orthostasis -GI (Dr. Banuelos) Consulted, Appreciate Rec's, If overt bleeding, change in hemodynamics, transfer to ICU setting. -EGD done today (09/15), Small sliding hiatal hernia, Non bleeding 7mm ulcer with clean base with flat red spot in the duodenal bulb likely the cause of recent bleeding. -If Pathology report shows positive H. Pylori, will treat -Will continue Pantoprazole drip. If no signs of overt bleeding, will change to PO Protonix 40mg daily. -Hgb 7.1 on admission -S/P 2 Units pRBC's (09/14) -Home dose tramadol held, Avoid NSAIDs -Monitor for signs of active GIB, Hemodynamic decline -Clear liquid diet. If no signs of overt bleeding, advance to fulls. -IV NS @ 100 mls/hr -Home antihypertensives held -Iron studies noted -Positive orthostatics: 101/52 90, 108/60 106, 90/56 119 #Hypokalemia -20 mEq IV in ED, 40 mEq po on admission -Mg level wnl -Continue to monitor #Asthma -Continue Ventolin -Continue to monitor #HLD -Continue home dose atorvastatin #FEN -NS @ 100 mls/hr -Lytes WNL -Clear liquid diet. If no signs of overt bleeding, advance to fulls. #PPx -DVT: SCD's Visit type - Emergency Visit Emergency Visit: Yes ED Registration Date: 09/14/18 Care time: The patient presented to the Emergency Department on the above date and was hospitalized for further evaluation of their emergent condition. - New Patient This patient is new to me today: No - Critical Care Critical Care patient: No - Discharge Referral Referred to [facility] No
[2018-09-15] MEDS: ATORVASTATIN CA 20 MG TABLET (FP) PO SCH (21:25)
[2018-09-16] MEDS ORDERED: PT OWN MED DRAWER 7, Y5N ONE ×2 (03:21→07:00)
[2018-09-16] MEDS: PANTOPRAZOLE SODIUM 80 MG in SODIUM CHLORIDE 100 ML IVPB SCH (03:23)
[2018-09-16 08:30] LABS: BASO % 0.3 % (0-2.0); EOS % 1.3 % (0-4.5); HEMATOCRIT 29.6 % (32.4-45.2); HEMOGLOBIN 9.8 GM/dL (10.7-15.3); LYMPH % 20.2 % (8-40); MCH 30.6 pg (25.7-33.7); MCHC 33.3 g/dl (32.0-36.0); MEAN CELL VOLUME 91.8 fl (80-96); MEAN PLT VOLUME 7.8 fl (7.5-11.1); MONO % 4.8 % (3.8-10.2); NEUT % 73.4 % (42.8-82.8); PLATELET COUNT 241 K/MM3 (134-434); RBC 3.22 M/mm3 (3.60-5.2); RDW 16.2 % (11.6-15.6); WHITE BLOOD COUNT 9.2 K/mm3 (4.0-10.0)
--- NOTE | 2018-09-16 08:34 | PN ---
Progress Note (short form) - Note Progress Note: Vital Signs Temperature 98.0 F 09/16/18 06:14 Pulse Rate 74 09/16/18 06:14 Respiratory Rate 18 09/16/18 06:14 Blood Pressure 123/77 09/16/18 06:14 O2 Sat by Pulse Oximetry (%) 97 09/15/18 20:13 GENERAL: Awake, alert, and fully oriented, in no acute distress. HEAD: Normal with no signs of trauma. EYES: Pupils equal, round and reactive to light, extraocular movements intact, EARS, NOSE, THROAT: Moist mucous membranes. NECK: Normal range of motion, supple without lymphadenopathy, JVD, or masses. LUNGS: expiratory breath sounds at upper lungs, No accessory muscle use. HEART: Regular rate and rhythm, normal S1 and S2 without murmur, rub or gallop. ABDOMEN: Soft, nontender, not distended, normoactive bowel sounds, no guarding, no rebound, no masses. EXTREMITIES: 2+ pulses, warm, well-perfused. No calf tenderness. No peripheral edema. NEUROLOGICAL: Cranial nerves II-XII intact. Normal speech. PSYCHIATRIC: Cooperative. Good eye contact. Appropriate mood and affect. SKIN: Warm, dry, normal turgor, no rashes or lesions noted, normal capillary refill. CBCD WBC 8.4 K/mm3 (4.0-10.0) 09/15/18 06:00 RBC 3.00 M/mm3 (3.60-5.2) L 09/15/18 06:00 Hgb 9.1 GM/dL (10.7-15.3) L 09/15/18 06:00 Hct 27.3 % (32.4-45.2) L 09/15/18 06:00 MCV 91.0 fl (80-96) 09/15/18 06:00 MCHC 33.4 g/dl (32.0-36.0) 09/15/18 06:00 RDW 15.0 % (11.6-15.6) 09/15/18 06:00 Plt Count 186 K/MM3 (134-434) 09/15/18 06:00 MPV 7.6 fl (7.5-11.1) 09/15/18 06:00 CMP Sodium 144 mmol/L (136-145) 10/26/18 06:00 Potassium 3.4 mmol/L (3.5-5.1) L 09/15/18 06:00 Chloride 110 mmol/L (98-107) H 09/15/18 06:00 Carbon Dioxide 25 mmol/L (21-32) 09/15/18 06:00 Anion Gap 10 MMOL/L (8-16) 09/15/18 06:00 BUN 7 mg/dL (7-18) 09/15/18 06:00 Creatinine 0.6 mg/dL (0.55-1.3) 09/15/18 06:00 Creat Clearance w eGFR > 60 (>60) 09/15/18 06:00 Random Glucose 89 mg/dL (74-106) 09/15/18 06:00 Calcium 8.2 mg/dL (8.5-10.1) L 09/15/18 06:00 Total Bilirubin 0.1 mg/dL (0.2-1) L 09/14/18 00:54 AST 11 U/L (15-37) L 09/14/18 00:54 ALT 15 U/L (13-61) 09/14/18 00:54 Alkaline Phosphatase 47 U/L (45-117) 09/14/18 00:54 Total Protein 5.6 g/dl (6.4-8.2) L 09/14/18 00:54 Albumin 2.9 g/dl (3.4-5.0) L 09/14/18 00:54 CARDIAC ENZYMES Creatine Kinase 61 IU/L (26-192) 09/14/18 00:54 Troponin I < 0.02 ng/ml (0.00-0.05) 09/14/18 00:54 Current Medications Generic Name Dose Route Start Last Admin Trade Name Freq PRN Reason Stop Dose Admin Albuterol Sulfate 1 amp 09/14/18 03:20 Ventolin 0.083% Nebulizer Soln - NEB Q4H PRN SHORT OF BREATH/WHEEZING Atorvastatin Calcium 20 mg 09/14/18 22:00 09/15/18 21:25 Lipitor - PO 20 mg HS [facility] Administration Sodium Chloride 1,000 mls @ 100 mls/hr 09/14/18 03:15 09/15/18 21:26 Normal Saline - IV 100 mls/hr ASDIR [facility] Administration Pantoprazole Sodium 80 mg/ 100 mls @ 10 mls/hr 09/14/18 16:00 09/16/18 03:23 Sodium Chloride IVPB 10 mls/hr Q10H [facility] Administration 8 MG/HR Home Medications Medication Instructions Recorded Albuterol 0.083% Nebulizer Soheila 1 neb NEB Q4H PRN 09/14/18 [Ventolin 0.083%] Albuterol Sulfate Inhaler - 1 - 2 inh PO Q4H PRN 09/14/18 [Ventolin Hfa Inhaler -] Amlodipine Besylate 10 mg PO DAILY 09/14/18 Atorvastatin Ca [Lipitor] 20 mg PO HS 09/14/18 Lisinopril [Prinivil] 20 mg PO DAILY 09/14/18 Tramadol HCl 50 mg PO TID PRN 09/14/18 Aspirin [ASA -] 81 mg PO DAILY 09/15/18 ASSESSMENT AND PLAN: Patient is a 72 y/o female with a history of HTN, HLD, OA, asthma, and GERD who presents with dizziness and headache, and was found to have in ED. an episode of episode of vomiting with dark blood on four days ago and two episodes of melena of three days ago. # Acute UGIB , s/p one unit of PRBC , on IV BID Protonix, GI consult appreciated. # Symptomatic Normocytic Anemia s/p one unit of RBC # Dizziness due to anemia # HTN stable , will Hold antihypertensives. DVT Px: SCDs
[2018-09-16 09:08] LABS: ALBUMIN 3.4 g/dl (3.4-5.0); ALK PHOS 55 U/L (45-117); ANION GAP 9 MMOL/L (8-16); BLOOD UREA NITROGEN 6 mg/dL (7-18); CALCIUM 8.3 mg/dL (8.5-10.1); CHLORIDE 112 mmol/L (98-107); CO2 26 mmol/L (21-32); CREATININE 0.7 mg/dL (0.55-1.3); GLUCOSE,RANDOM 95 mg/dL (74-106); MAGNESIUM 2.2 mg/dL (1.8-2.4); PHOSPHOROUS 3.4 mg/dL (2.5-4.9); POTASSIUM 3.3 mmol/L (3.5-5.1); SGOT/AST 10 U/L (15-37); SGPT/ALT 15 U/L (13-61); SODIUM 146 mmol/L (136-145); TOT PROT 6.5 g/dl (6.4-8.2)
--- NOTE | 2018-09-16 09:58 | PN ---
Progress Note (short form) - Note Progress Note: Denies abdominal pain. No further BM, no vomiting. Pt vomited blood 6 days ago, had clean-based small ulcer yesterday. She is at minimal risk of rebleeding. Will advance diet, change to oral PPI. CBC, BMP 09/16/18 07:50 09/16/18 07:50 If diet is tolerated and no further bleeding, have no objection to discharge tomorrow.
[2018-09-16] MEDS ORDERED: PANTOPRAZOLE SOD 40 MG SUSPENSION PACKET PO SCH (10:00)
--- NOTE | 2018-09-16 17:10 | DS ---
Physical Exam: SUBJECTIVE: Patient seen and examined Patient is feeling better with no acute distress, no shortness of breath, no further bleed, tolerated diet well so far. OBJECTIVE: PHYSICAL EXAM Vital Signs Temperature 98.3 F 09/16/18 14:06 Pulse Rate 85 recheck 09/16/18 15:06 Respiratory Rate 18 09/16/18 14:06 Blood Pressure 114/66 09/16/18 14:06 O2 Sat by Pulse Oximetry (%) 98 09/16/18 09:00 GENERAL: The patient is awake, alert, and fully oriented, in no acute distress. HEAD: Normal with no signs of trauma. EYES: PERRL, extraocular movements intact, sclera anicteric, conjunctiva clear. ENT: Ears normal, nares patent, oropharynx clear without exudates, moist mucous membranes. NECK: Trachea midline, full range of motion, supple. LUNGS: Breath sounds equal, clear to auscultation bilaterally, no wheezes, no crackles, no accessory muscle use. HEART: Regular rate and rhythm, S1, S2 without murmur, rub or gallop. ABDOMEN: Soft, nontender, nondistended, normoactive bowel sounds, no guarding, no rebound, no hepatosplenomegaly, no masses. EXTREMITIES: 2+ pulses, warm, well-perfused, no edema. NEUROLOGICAL: Cranial nerves II through XII grossly intact. Normal speech, gait not observed. PSYCH: Normal mood, normal affect. SKIN: Warm, dry, normal turgor, no rashes or lesions noted. LABS CBCD WBC 9.2 K/mm3 (4.0-10.0) 09/16/18 07:50 RBC 3.22 M/mm3 (3.60-5.2) L 09/16/18 07:50 Hgb 9.8 GM/dL (10.7-15.3) L 09/16/18 07:50 Hct 29.6 % (32.4-45.2) L 09/16/18 07:50 MCV 91.8 fl (80-96) 09/16/18 07:50 MCHC 33.3 g/dl (32.0-36.0) 09/16/18 07:50 RDW 16.2 % (11.6-15.6) H 09/16/18 07:50 Plt Count 241 K/MM3 (134-434) D 09/16/18 07:50 MPV 7.8 fl (7.5-11.1) 09/16/18 07:50 CMP Sodium 146 mmol/L (136-145) H 09/16/18 07:50 Potassium 3.3 mmol/L (3.5-5.1) L 09/16/18 07:50 Chloride 112 mmol/L (98-107) H 09/16/18 07:50 Carbon Dioxide 26 mmol/L (21-32) 09/16/18 07:50 Anion Gap 9 MMOL/L (8-16) 09/16/18 07:50 BUN 6 mg/dL (7-18) L 09/16/18 07:50 Creatinine 0.7 mg/dL (0.55-1.3) 09/16/18 07:50 Creat Clearance w eGFR > 60 (>60) 09/16/18 07:50 Random Glucose 95 mg/dL (74-106) 09/16/18 07:50 Calcium 8.3 mg/dL (8.5-10.1) L 09/16/18 07:50 Total Bilirubin 1.0 mg/dL (0.2-1) 09/16/18 07:50 AST 10 U/L (15-37) L 09/16/18 07:50 ALT 15 U/L (13-61) 09/16/18 07:50 Alkaline Phosphatase 55 U/L (45-117) 09/16/18 07:50 Total Protein 6.5 g/dl (6.4-8.2) 09/16/18 07:50 Albumin 3.4 g/dl (3.4-5.0) 09/16/18 07:50 CARDIAC ENZYMES Creatine Kinase 61 IU/L (26-192) 09/14/18 00:54 Troponin I < 0.02 ng/ml (0.00-0.05) 09/14/18 00:54 Current Medications Generic Name Dose Route Start Last Admin Trade Name Freq PRN Reason Stop Dose Admin Albuterol Sulfate 1 amp 09/14/18 03:20 Ventolin 0.083% Nebulizer Soln - NEB Q4H PRN SHORT OF BREATH/WHEEZING Atorvastatin Calcium 20 mg 09/14/18 22:00 09/15/18 21:25 Lipitor - PO 20 mg HS CASSY Administration Pantoprazole Sodium 40 mg 09/16/18 10:00 Protonix Packets For Oral Suspension - PO BID [facility] Home Medications Medication Instructions Recorded Albuterol 0.083% Nebulizer Soheila 1 neb NEB Q4H PRN 09/14/18 [Ventolin 0.083%] Albuterol Sulfate Inhaler - 1 - 2 inh PO Q4H PRN 09/14/18 [Ventolin Hfa Inhaler -] Amlodipine Besylate 10 mg PO DAILY 09/14/18 Atorvastatin Ca [Lipitor] 20 mg PO HS 09/14/18 Lisinopril [Prinivil] 20 mg PO DAILY 09/14/18 Tramadol HCl 50 mg PO TID PRN 09/14/18 Aspirin [ASA -] 81 mg PO DAILY 09/15/18 HOSPITAL COURSE: Date of Admission:09/14/18 Date of Discharge: 09/16/18 Patient is a 72 y/o female with a history of HTN, HLD, OA, asthma, and GERD who presents with dizziness and headache, and was found to have in ED. an episode of episode of vomiting with dark blood on four days ago and two episodes of melena of three days ago. # Acute UGIB , s/p one unit of PRBC s/p EGD with Bx by , follow with for Bx result. for further treatment if needed. will continue with po Protonix for 30 day s now. As per GI : clean-based small ulcer yesterday. She is at minimal risk of rebleeding.diet is advanced , change to oral PPI. # Symptomatic Normocytic Anemia s/p one unit of RBC improved # Dizziness due to anemia improved post transfusion # HTN stable , will Hold antihypertensives. DVT Px: SCDs Minutes to complete discharge: 46 Discharge Summary Reason For Visit: GASTROINTESTINAL HEMORRHAGE,SECONDARY ANEMIA, Current Active Problems Family history of malignant neoplasm of colon in first degree relative diagnosed when younger than 60 years of age (Acute) GI bleed (Acute) Symptomatic anemia (Acute) Condition: Fair - Instructions - Home Medications Comprehensive Discharge Medication List: Ambulatory Orders Albuterol 0.083% Nebulizer Soheila [Ventolin 0.083%] 1 neb NEB Q4H PRN 09/14/18 Albuterol Sulfate Inhaler - [Ventolin Hfa Inhaler -] 1 - 2 inh PO Q4H PRN Amlodipine Besylate 10 mg PO DAILY 09/14/18 Atorvastatin Ca [Lipitor] 20 mg PO HS 09/14/18 Lisinopril [Prinivil] 20 mg PO DAILY 09/14/18 Tramadol HCl 50 mg PO TID PRN 09/14/18 Aspirin [ASA -] 81 mg PO DAILY 09/15/18 This patient is new to me today: No Emergency Visit: Yes ED Registration Date: 09/14/18 Care time: The patient presented to the Emergency Department on the above date and was hospitalized for further evaluation of their emergent condition. Critical Care patient: No - Discharge Referral Referred to [facility] Med P.C.: No
[2018-09-16 17:57] VITALS: BP 123/75; PULSE 86; TEMP 98.4
--- NOTE | 2018-09-19 18:25 | PATH ---
Surgical Pathology Report Patient Name: GIUSEPPE DIALLO [facility]. Rec. #: [id number] /Age/Gender: 1945 (Age: 72) / F Account: [id number] Location: [facility] MED/SURG Taken: 09/15/2018 Received: 09/18/2018 Reported: 09/19/2018 Physicians: Marsha Jimenez M.D. Specimen(s) Received BX ANTRUM AND BODY Clinical History GI bleeding Postoperative diagnosis: Hiatal hernia, duodenal bulb ulcer Final Diagnosis ANTRUM AND BODY, BIOPSY: GASTRIC MUCOSA WITH MODERATELY ACTIVE CHRONIC GASTRITIS. NEGATIVE FOR INTESTINAL METAPLASIA. IMMUNOSTAIN FOR H. PYLORI IS POSITIVE. Electronically Signed Eve Cox M.D. Gross Description Received in formalin, labeled "biopsy antrum and body" are 5 [place], irregular portions of soft tissue ranging from 0.2-0.4 cm. in greatest dimension. The specimens are submitted in toto in one cassette. /09/18/2018 saudi/09/18/2018
== END 2018-09-16 19:00 | disposition home or self-care (01) | DRG 378 ==
LOC: JER 22:02 → JERBED 09-14 00:34 → J7W 09-15 13:52
PROVIDERS: ADMIT Internal Medicine; ATTEND Internal Medicine
PROC: 30233N1 Transfusion of Nonautologous Red Blood Cells into Peripheral Vein, Percutaneous Approach (ICD-10-PCS; 2018-09-14)
PROC: 0DB68ZX Excision of Stomach, Via Natural or Artificial Opening Endoscopic, Diagnostic (ICD-10-PCS; principal; 2018-09-15 13:00)
DX: K26.4 Chronic or unspecified duodenal ulcer with hemorrhage (principal); D62 Acute posthemorrhagic anemia; D64.9 Anemia, unspecified; E87.6 Hypokalemia; K44.9 Diaphragmatic hernia without obstruction or gangrene; I10 Essential (primary) hypertension; E78.5 Hyperlipidemia, unspecified; M19.90 Unspecified osteoarthritis, unspecified site; K21.9 Gastro-esophageal reflux disease without esophagitis; J45.909 Unspecified asthma, uncomplicated; F41.9 Anxiety disorder, unspecified; R42 Dizziness and giddiness; Z80.0 Family history of malignant neoplasm of digestive organs; T39.395A Adverse effect of other nonsteroidal anti-inflammatory drugs [NSAID], initial encounter
CPT/HCPCS: 36415; 36430; 71045-TC-FY; 80048; 80053; 82272; 82550; 82607; 82728; 82746; 83540; 83550; 83605; 83735; 84100; 84443; 84484; 85025; 85027; 85610; 85730; 86850; 86900; 86901; 86922; 88305-TC; 93005; 93010; 99285-25; J7030; P9038; P9058